=== PATIENT | female | born 1995 | race African-American/Black ===

== ENCOUNTER 2017-06-11 08:58 | Inpatient (IN) | payer MEDICAID ==
[~2017-06-11] VITALS: Ht 162.6 cm; Wt 64.9 kg
[~2017-06-11 08:58] MED LIST: RISP3 PO
[2017-06-11] MEDS ORDERED: HALOPERIDOL 5 MG TABLET PO PRN (12:30)
[2017-06-11] MEDS ORDERED: LORazepam 2 MG TABLET PO PRN (12:30)
[2017-06-11] MEDS ORDERED: ZOLPIDEM TARTRATE 10 MG TABLET PO PRN (12:30)
[2017-06-11 13:00] VITALS: BP 109/75
[2017-06-11] MEDS: RisperiDONE 3 MG TABLET PO SCH (16:03)
[2017-06-11 16:18] VITALS: BP 130/80
[2017-06-12] MEDS ORDERED: PETROLATUM,WHITE 71 GM JELLY TP PRN (08:45)
[2017-06-12] MEDS ORDERED: BENZOCAINE/MENTHOL LOZENGE MM PRN (08:45)
[2017-06-12] MEDS ORDERED: ACETAMINOPHEN 325 MG TABLET PO PRN (08:45)
[2017-06-12] MEDS ORDERED: BACITRACIN 28.4 GM OINTMENT TP PRN (08:45)
[2017-06-12] MEDS ORDERED: ALBUTEROL SULFATE HFA 90 MCG/PUFF 8 GM INHALER IH PRN (08:45)
[2017-06-12] MEDS ORDERED: MAG HYDROX/AL HYDROX/SIMETH ES 30 ML SUSPENSION UDCUP PO PRN (08:45)
[2017-06-12] MEDS ORDERED: CloNIDine HCL 0.1 MG TABLET PO PRN (08:45)
[2017-06-12] MEDS ORDERED: IBUPROFEN 600 MG TABLET PO PRN (08:45)
[2017-06-12] MEDS ORDERED: ONDANSETRON HCL 4 MG TABLET PO PRN (08:45)
[2017-06-12] MEDS ORDERED: LOPERAMIDE HCL 2 MG CAPSULE PO PRN (08:45)
[2017-06-12] MEDS ORDERED: MAGNESIUM HYDROXIDE SUSPENSION 30 ML UDCUP PO PRN (08:45)
[2017-06-12] MEDS ORDERED: HYDROCORTISONE 0.5% 30 GM CREAM TP PRN (09:45)
[2017-06-12] MEDS: RisperiDONE 3 MG TABLET PO SCH ×2 (10:44→16:15)
[2017-06-12 16:06] VITALS: BP 112/80
[2017-06-13 05:57] VITALS: BP 128/72
[2017-06-13] MEDS: RisperiDONE 3 MG TABLET PO SCH ×2 (08:54→16:14)
[2017-06-13 16:08] VITALS: BP 125/74
[2017-06-14 01:55] VITALS: BP 114/72
[2017-06-14] MEDS: RisperiDONE 3 MG TABLET PO SCH ×2 (08:52→16:17)
[2017-06-14] MEDS ORDERED: TUBERCULIN, PURIFIED PROTEIN DERIVATIVE 5 TU/0.1 ML SYG ID ONE (11:15)
[2017-06-15] MEDS: RisperiDONE 3 MG TABLET PO SCH ×2 (09:08→17:00)
[2017-06-15] MEDS: TUBERCULIN, PURIFIED PROTEIN DERIVATIVE 5 TU/0.1 ML SYG ID ONE (14:45)
[2017-06-16] MEDS: RisperiDONE 3 MG TABLET PO SCH ×2 (08:49→16:55)
[2017-06-17] MEDS: RisperiDONE 3 MG TABLET PO SCH ×2 (09:00→16:18)
[2017-06-18 08:24] VITALS: BP 100/56
[2017-06-18] MEDS: RisperiDONE 3 MG TABLET PO SCH ×2 (08:59→16:23)
[2017-06-18] MEDS: TUBERCULIN, PURIFIED PROTEIN DERIVATIVE 5 TU/0.1 ML SYG ID ONE (17:51)
[2017-06-19] MEDS: RisperiDONE 3 MG TABLET PO SCH ×2 (09:00→17:00)
[2017-06-19 09:10] VITALS: BP 114/66
[2017-06-20] MEDS: MEGESTROL ACETATE 400 MG/10 ML SUSPENSION UDCUP PO SCH ×2 (08:56→09:00)
[2017-06-20] MEDS: RisperiDONE 3 MG TABLET PO SCH ×3 (08:56→16:57)
[2017-06-21] MEDS: RisperiDONE 3 MG TABLET PO SCH ×2 (09:00→16:23)
[2017-06-21] MEDS: MEGESTROL ACETATE 400 MG/10 ML SUSPENSION UDCUP PO SCH (09:00)
[2017-06-22] MEDS: MEGESTROL ACETATE 400 MG/10 ML SUSPENSION UDCUP PO SCH ×2 (08:57→09:00)
[2017-06-22] MEDS: RisperiDONE 3 MG TABLET PO SCH ×3 (08:57→17:00)
[2017-06-23] MEDS: MEGESTROL ACETATE 400 MG/10 ML SUSPENSION UDCUP PO SCH ×2 (09:00→09:48)
[2017-06-23] MEDS: RisperiDONE 3 MG TABLET PO SCH ×3 (09:00→17:00)
[2017-06-24] MEDS: RisperiDONE 3 MG TABLET PO SCH ×2 (09:00→17:00)
[2017-06-24] MEDS: MEGESTROL ACETATE 400 MG/10 ML SUSPENSION UDCUP PO SCH (09:00)
[2017-06-25] MEDS: RisperiDONE 3 MG TABLET PO SCH ×2 (09:00→16:53)
[2017-06-25] MEDS: MEGESTROL ACETATE 400 MG/10 ML SUSPENSION UDCUP PO SCH (09:00)
== END 2017-06-25 18:05 | disposition home or self-care (01) | DRG 750 ==
LOC: B3A 12:35 → B2S 06-14 18:38
PROVIDERS: ADMIT Psychiatry & Neurology Psychiatry; ATTEND Psychiatry & Neurology Psychiatry
DX: F20.0 Paranoid schizophrenia (principal); E44.1 Mild protein-calorie malnutrition; G47.00 Insomnia, unspecified; L30.9 Dermatitis, unspecified; Z53.20 Procedure and treatment not carried out because of patient's decision for unspecified reasons; Z91.19 Patient's noncompliance with other medical treatment and regimen; R45.87 Impulsiveness; Z56.0 Unemployment, unspecified; Z68.24 Body mass index [BMI] 24.0-24.9, adult
CPT/HCPCS: 87081

== ENCOUNTER 2017-06-29 17:11 | Inpatient (IN) | payer MEDICAID ==
[~2017-06-29] VITALS: Ht 162.6 cm; Wt 82.6 kg
[2017-06-29 18:14] LABS: BASOPHILS % (AUTO) 0.2 % (0.0-2.0); EOSINOPHILS % (AUTO) 0.2 % (1.0-6.0); HEMATOCRIT 39.7 % (36-46); HEMOGLOBIN 12.9 g/dL (12.0-16.0); LYMPHOCYTES # (AUTO) 1.3 K/uL (1.0-4.8); LYMPHOCYTES % (AUTO) 17.1 % (22.0-44.0); MEAN CORPUSCULAR HEMOGLOBIN 26.4 pg (26.0-34.0); MEAN CORPUSCULAR HGB CONC 32.6 G/dL (31.0-37.0); MEAN CORPUSCULAR VOLUME 81 fL (80-100); MONOCYTES # (AUTO) 0.5 K/uL (0.1-1.0); MONOCYTES % (AUTO) 6.5 % (2.0-9.0); NEUTROPHILS # (AUTO) 5.8 K/uL (1.8-7.7); PLATELET COUNT (AUTO) 226 K/uL (150-450)
[2017-06-29 18:24] LABS: ANION GAP 13 mmol/L (8-16); CALCIUM, TOTAL 9.6 mg/dL (8.8-10.5); CARBON DIOXIDE 26 mmol/L (22-29); CHLORIDE 101 mmol/L (98-107); GLOMERULAR FILTR. RATE CALC > 60 mL/min (>60); GLUCOSE,RANDOM 108 mg/dL (70-110); POTASSIUM 3.8 mmol/L (3.5-5.1); SODIUM SERUM 140 mmol/L (136-145); UREA NITROGEN, BLOOD 8 mg/dL (7-18)
[2017-06-29 18:31] LABS: ALANINE AMINOTRANSFERASE 23 U/L (12-78); ALBUMIN 4.3 g/dL (3.4-5.0); ALKALINE PHOSPHATASE 40 U/L (46-116); ASPARTATE AMINOTRANSFERASE 15 U/L (15-37); BILIRUBIN,TOTAL 1.3 mg/dL (0.1-1.0); TOTAL PROTEIN, SERUM 8.3 g/dL (6.4-8.2)
[2017-06-29] MEDS ORDERED: LORazepam 2 MG TABLET PO PRN (18:45)
[2017-06-29] MEDS ORDERED: HALOPERIDOL 5 MG TABLET PO PRN (18:45)
[2017-06-29] MEDS ORDERED: ZOLPIDEM TARTRATE 10 MG TABLET PO PRN (18:45)
[2017-06-30 00:06] VITALS: BP 128/63
[2017-06-30] MEDS ORDERED: INFLUENZA VIRUS VACCINE QVS 2017-18 (3YR+)/PF 60 MCG/0.5 ML SYRINGE IM ONE (03:00)
[2017-06-30] MEDS ORDERED: BACITRACIN 28.4 GM OINTMENT TP PRN (08:45)
[2017-06-30] MEDS ORDERED: CloNIDine HCL 0.1 MG TABLET PO PRN (08:45)
[2017-06-30] MEDS ORDERED: MAG HYDROX/AL HYDROX/SIMETH ES 30 ML SUSPENSION UDCUP PO PRN (08:45)
[2017-06-30] MEDS ORDERED: MAGNESIUM HYDROXIDE SUSPENSION 30 ML UDCUP PO PRN (08:45)
[2017-06-30] MEDS ORDERED: ONDANSETRON HCL 4 MG TABLET PO PRN (08:45)
[2017-06-30] MEDS ORDERED: PETROLATUM,WHITE 71 GM JELLY TP PRN (08:45)
[2017-06-30] MEDS ORDERED: ALBUTEROL SULFATE HFA 90 MCG/PUFF 8 GM INHALER IH PRN (08:45)
[2017-06-30] MEDS ORDERED: IBUPROFEN 600 MG TABLET PO PRN (08:45)
[2017-06-30] MEDS ORDERED: LOPERAMIDE HCL 2 MG CAPSULE PO PRN (08:45)
[2017-06-30 09:18] VITALS: BP 132/74
[2017-06-30] MEDS: RisperiDONE 3 MG TABLET PO SCH (16:33)
[2017-07-01] MEDS: RisperiDONE 3 MG TABLET PO SCH ×3 (08:46→16:12)
[2017-07-02] MEDS: MEGESTROL ACETATE 400 MG/10 ML SUSPENSION UDCUP PO SCH ×2 (08:49→09:00)
[2017-07-02] MEDS: RisperiDONE 3 MG TABLET PO SCH ×3 (08:49→16:18)
[2017-07-03] MEDS: RisperiDONE 3 MG TABLET PO SCH ×2 (09:00→16:25)
[2017-07-03] MEDS: MEGESTROL ACETATE 400 MG/10 ML SUSPENSION UDCUP PO SCH (09:00)
[2017-07-04] MEDS: RisperiDONE 3 MG TABLET PO SCH ×2 (09:47→16:25)
[2017-07-04] MEDS: MEGESTROL ACETATE 400 MG/10 ML SUSPENSION UDCUP PO SCH (09:47)
[2017-07-04 20:30] VITALS: BP 101/71
[2017-07-05 08:57] VITALS: BP 113/52
[2017-07-05] MEDS: MEGESTROL ACETATE 400 MG/10 ML SUSPENSION UDCUP PO SCH (09:00)
[2017-07-05] MEDS: RisperiDONE 3 MG TABLET PO SCH ×3 (09:00→16:49)
[2017-07-06] MEDS: RisperiDONE 3 MG TABLET PO SCH ×2 (09:53→16:05)
[2017-07-06] MEDS: MEGESTROL ACETATE 400 MG/10 ML SUSPENSION UDCUP PO SCH (09:54)
[2017-07-07] MEDS: MEGESTROL ACETATE 400 MG/10 ML SUSPENSION UDCUP PO SCH (09:00)
[2017-07-07] MEDS: RisperiDONE 3 MG TABLET PO SCH ×2 (10:11→17:00)
[2017-07-08 06:03] VITALS: BP 124/60
[2017-07-08] MEDS: MEGESTROL ACETATE 400 MG/10 ML SUSPENSION UDCUP PO SCH (09:00)
[2017-07-08] MEDS: RisperiDONE 3 MG TABLET PO SCH ×2 (09:00→17:14)
[2017-07-08] MEDS ORDERED: LORazepam 2 MG/ML VIAL IM ONE (12:00)
[2017-07-08] MEDS ORDERED: HALOPERIDOL LACTATE 5 MG/ML VIAL IM ONE (12:00)
[2017-07-08 14:48] VITALS: BP 134/81
[2017-07-09] MEDS: MEGESTROL ACETATE 400 MG/10 ML SUSPENSION UDCUP PO SCH (09:15)
[2017-07-09] MEDS: RisperiDONE 3 MG TABLET PO SCH ×2 (09:16→16:22)
[2017-07-10] MEDS: MEGESTROL ACETATE 400 MG/10 ML SUSPENSION UDCUP PO SCH (08:12)
[2017-07-10] MEDS: RisperiDONE 3 MG TABLET PO SCH ×2 (08:12→16:05)
[2017-07-11 06:02] VITALS: BP 108/63
[2017-07-11] MEDS: RisperiDONE 3 MG TABLET PO SCH ×3 (09:00→16:39)
[2017-07-11] MEDS: MEGESTROL ACETATE 400 MG/10 ML SUSPENSION UDCUP PO SCH (09:00)
[2017-07-12] MEDS: MEGESTROL ACETATE 400 MG/10 ML SUSPENSION UDCUP PO SCH (08:33)
[2017-07-12] MEDS: RisperiDONE 3 MG TABLET PO SCH ×2 (08:34→16:24)
[2017-07-13] MEDS: RisperiDONE 3 MG TABLET PO SCH ×2 (08:28→16:26)
[2017-07-13] MEDS: MEGESTROL ACETATE 400 MG/10 ML SUSPENSION UDCUP PO SCH (08:34)
[2017-07-14 03:58] VITALS: BP 135/72
[2017-07-14] MEDS: MEGESTROL ACETATE 400 MG/10 ML SUSPENSION UDCUP PO SCH (09:00)
[2017-07-14] MEDS: RisperiDONE 3 MG TABLET PO SCH ×2 (09:09→16:15)
[2017-07-15] MEDS: RisperiDONE 3 MG TABLET PO SCH ×2 (08:44→16:43)
[2017-07-15] MEDS: MEGESTROL ACETATE 400 MG/10 ML SUSPENSION UDCUP PO SCH (08:44)
[2017-07-16] MEDS: RisperiDONE 3 MG TABLET PO SCH ×2 (08:27→17:42)
[2017-07-16] MEDS: MEGESTROL ACETATE 400 MG/10 ML SUSPENSION UDCUP PO SCH (08:27)
[2017-07-17] MEDS: MEGESTROL ACETATE 400 MG/10 ML SUSPENSION UDCUP PO SCH (08:28)
[2017-07-17] MEDS: RisperiDONE 3 MG TABLET PO SCH ×2 (08:28→16:20)
[2017-07-18 00:10] VITALS: BP 110/78
[2017-07-18] MEDS: MEGESTROL ACETATE 400 MG/10 ML SUSPENSION UDCUP PO SCH (09:37)
[2017-07-18] MEDS: RisperiDONE 3 MG TABLET PO SCH ×2 (09:37→16:57)
[2017-07-18 16:26] VITALS: BP 122/80
[2017-07-19] MEDS: RisperiDONE 3 MG TABLET PO SCH ×2 (08:42→16:38)
[2017-07-19] MEDS: MEGESTROL ACETATE 400 MG/10 ML SUSPENSION UDCUP PO SCH (08:43)
[2017-07-20 07:54] LABS: CHOL/HDL RATIO 2.4 (3.9-5.7)
[2017-07-20] MEDS: MEGESTROL ACETATE 400 MG/10 ML SUSPENSION UDCUP PO SCH (09:00)
[2017-07-20] MEDS: RisperiDONE 3 MG TABLET PO SCH ×2 (09:49→16:15)
[2017-07-21] MEDS: MEGESTROL ACETATE 400 MG/10 ML SUSPENSION UDCUP PO SCH (09:00)
[2017-07-21] MEDS: RisperiDONE 3 MG TABLET PO SCH ×2 (09:44→17:39)
[2017-07-22] MEDS: RisperiDONE 3 MG TABLET PO SCH ×2 (10:02→17:20)
[2017-07-23 00:48] VITALS: BP 111/60
[2017-07-23] MEDS: RisperiDONE 3 MG TABLET PO SCH ×2 (09:37→17:10)
[2017-07-23 16:28] VITALS: BP 116/67
[2017-07-24] MEDS: RisperiDONE 3 MG TABLET PO SCH ×2 (08:56→16:25)
[2017-07-25] MEDS: RisperiDONE 3 MG TABLET PO SCH ×2 (09:19→16:31)
[2017-07-26] MEDS: RisperiDONE 3 MG TABLET PO SCH ×2 (09:31→16:58)
[2017-07-26 16:20] VITALS: BP 111/63
[2017-07-27 00:20] VITALS: BP 120/72
[2017-07-27] MEDS: RisperiDONE 3 MG TABLET PO SCH ×2 (09:05→16:20)
[2017-07-27 16:11] VITALS: BP 108/72
[2017-07-28 01:09] VITALS: BP 109/63
[2017-07-28] MEDS: RisperiDONE 3 MG TABLET PO SCH ×2 (08:46→16:07)
[2017-07-28 16:32] VITALS: BP 110/68
[2017-07-28] MEDS ORDERED: GuaiFENesin/D-METHORPHAN [SUGAR-FREE] 200-20MG/10 ML SYRUP UDCUP PO PRN (22:15)
[2017-07-29] MEDS: RisperiDONE 3 MG TABLET PO SCH ×2 (08:49→16:16)
[2017-07-29] MEDS: GuaiFENesin SR 600 MG ER TABLET PO PRN (20:36)
[2017-07-30 00:29] VITALS: BP 117/71
[2017-07-30] MEDS: RisperiDONE 3 MG TABLET PO SCH ×2 (08:29→16:23)
[2017-07-31] MEDS: RisperiDONE 3 MG TABLET PO SCH ×2 (09:06→16:07)
[2017-08-01 01:17] VITALS: BP 130/80
[2017-08-01] MEDS: RisperiDONE 3 MG TABLET PO SCH ×2 (08:43→16:34)
[2017-08-02] MEDS: RisperiDONE 3 MG TABLET PO SCH ×2 (08:35→16:12)
[2017-08-02 16:40] VITALS: BP 108/64
[2017-08-03 00:31] VITALS: BP 108/68
[2017-08-03] MEDS: RisperiDONE 3 MG TABLET PO SCH ×2 (08:14→16:38)
[2017-08-03 08:15] VITALS: BP 129/72
[2017-08-04] MEDS: RisperiDONE 3 MG TABLET PO SCH ×2 (08:24→17:22)
[2017-08-05] MEDS: RisperiDONE 3 MG TABLET PO SCH ×2 (09:27→16:23)
[2017-08-06 08:09] VITALS: BP 116/76
[2017-08-06] MEDS: RisperiDONE 3 MG TABLET PO SCH ×2 (08:58→16:47)
[2017-08-07] MEDS: RisperiDONE 3 MG TABLET PO SCH ×2 (09:05→16:55)
[2017-08-08] MEDS: RisperiDONE 3 MG TABLET PO SCH ×2 (09:37→16:32)
[2017-08-09 00:07] VITALS: BP 113/60
[2017-08-09] MEDS: RisperiDONE 3 MG TABLET PO SCH ×2 (10:04→16:19)
[2017-08-10] MEDS: RisperiDONE 3 MG TABLET PO SCH ×2 (08:47→16:07)
[2017-08-11] MEDS: RisperiDONE 3 MG TABLET PO SCH ×2 (08:53→16:40)
[2017-08-12] MEDS: RisperiDONE 3 MG TABLET PO SCH ×2 (10:38→16:38)
[2017-08-13 08:21] VITALS: BP 107/64
[2017-08-13] MEDS: RisperiDONE 3 MG TABLET PO SCH ×2 (08:35→16:10)
[2017-08-14 08:00] VITALS: BP 112/67
[2017-08-14] MEDS: RisperiDONE 3 MG TABLET PO SCH ×2 (09:06→16:19)
[2017-08-15] MEDS: RisperiDONE 3 MG TABLET PO SCH ×2 (09:42→16:38)
[2017-08-15 16:11] VITALS: BP 120/73
[2017-08-16 04:23] VITALS: BP 116/66
[2017-08-16 07:29] LABS: BASOPHILS % (AUTO) 0.6 % (0.0-2.0); EOSINOPHILS % (AUTO) 1.6 % (1.0-6.0); HEMATOCRIT 39.7 % (36-46); HEMOGLOBIN 13.1 g/dL (12.0-16.0); LYMPHOCYTES # (AUTO) 2.8 K/uL (1.0-4.8); LYMPHOCYTES % (AUTO) 48.2 % (22.0-44.0); MEAN CORPUSCULAR HEMOGLOBIN 26.8 pg (26.0-34.0); MEAN CORPUSCULAR HGB CONC 32.9 G/dL (31.0-37.0); MEAN CORPUSCULAR VOLUME 81 fL (80-100); MONOCYTES # (AUTO) 0.4 K/uL (0.1-1.0); MONOCYTES % (AUTO) 6.4 % (2.0-9.0); NEUTROPHILS # (AUTO) 2.5 K/uL (1.8-7.7); NEUTROPHILS % (AUTO) 43.2 % (40.0-70.0); PLATELET COUNT (AUTO) 217 K/uL (150-450); RED BLOOD CELL COUNT(AUTO) 4.87 MIL/uL (4.00-5.20); RED CELL DISTRIBUTION WIDTH 15.2 % (11.5-14.5)
[2017-08-16 07:56] LABS: ANION GAP 9 mmol/L (8-16); CALCIUM, TOTAL 8.9 mg/dL (8.8-10.5); CARBON DIOXIDE 27 mmol/L (22-29); CHLORIDE 105 mmol/L (98-107); CREATININE 0.72 mg/dL (0.60-1.30); GLOMERULAR FILTR. RATE CALC > 60 mL/min (>60); GLUCOSE,RANDOM 93 mg/dL (70-110); PHOSPHORUS 4.5 mg/dL (2.5-4.9); POTASSIUM 4.4 mmol/L (3.5-5.1); SODIUM SERUM 141 mmol/L (136-145); UREA NITROGEN, BLOOD 14 mg/dL (7-18)
[2017-08-16] MEDS: RisperiDONE 3 MG TABLET PO SCH ×2 (08:37→16:20)
[2017-08-17 05:35] VITALS: BP 105/52
[2017-08-17] MEDS: RisperiDONE 3 MG TABLET PO SCH ×2 (08:15→16:18)
[2017-08-18 06:40] VITALS: BP 110/66
[2017-08-18] MEDS: RisperiDONE 3 MG TABLET PO SCH ×2 (08:10→16:45)
[2017-08-18 08:13] VITALS: BP 129/84
[2017-08-19] MEDS: RisperiDONE 3 MG TABLET PO SCH ×2 (08:49→16:09)
[2017-08-19 16:13] VITALS: BP 113/67
[2017-08-20 01:14] VITALS: BP 123/68
[2017-08-20] MEDS: RisperiDONE 3 MG TABLET PO SCH ×2 (08:19→17:43)
[2017-08-20 17:27] VITALS: BP 124/66
[2017-08-21] MEDS: RisperiDONE 3 MG TABLET PO SCH ×2 (08:45→16:15)
[2017-08-21 16:17] VITALS: BP 123/69
[2017-08-22 03:59] VITALS: BP 119/68
[2017-08-22] MEDS: RisperiDONE 3 MG TABLET PO SCH ×2 (09:19→16:48)
[2017-08-22 16:09] VITALS: BP 119/66
[2017-08-23] MEDS: RisperiDONE 3 MG TABLET PO SCH ×2 (08:37→16:16)
[2017-08-23 16:12] VITALS: BP 121/70
[2017-08-24] MEDS: RisperiDONE 3 MG TABLET PO SCH ×2 (08:56→16:12)
[2017-08-25] MEDS: RisperiDONE 3 MG TABLET PO SCH ×2 (08:35→16:13)
[2017-08-26] MEDS: RisperiDONE 3 MG TABLET PO SCH ×2 (08:27→16:12)
[2017-08-27] MEDS: RisperiDONE 3 MG TABLET PO SCH ×2 (08:41→16:25)
[2017-08-27 16:15] VITALS: BP 112/85
[2017-08-28 03:46] VITALS: BP 119/78
[2017-08-28 08:16] VITALS: BP 121/72
[2017-08-28] MEDS: RisperiDONE 3 MG TABLET PO SCH ×2 (08:36→16:03)
[2017-08-29 06:59] VITALS: BP 115/66
[2017-08-29 08:05] VITALS: BP 118/70
[2017-08-29] MEDS: RisperiDONE 3 MG TABLET PO SCH ×2 (08:17→16:24)
[2017-08-29 16:24] VITALS: BP 109/79
[2017-08-30 00:38] VITALS: BP 121/76
[2017-08-30] MEDS: RisperiDONE 3 MG TABLET PO SCH ×2 (08:50→16:13)
[2017-08-31 00:45] VITALS: BP 114/70
[2017-08-31] MEDS: RisperiDONE 3 MG TABLET PO SCH ×2 (08:41→16:09)
[2017-08-31 16:27] VITALS: BP 126/74
[2017-09-01 06:57] VITALS: BP 123/66
[2017-09-01 07:15] VITALS: BP 125/83
[2017-09-01] MEDS: RisperiDONE 3 MG TABLET PO SCH ×2 (12:23→17:03)
[2017-09-02] MEDS: RisperiDONE 3 MG TABLET PO SCH ×4 (09:00→16:35)
[2017-09-03 00:55] VITALS: BP 127/70
[2017-09-03] MEDS: RisperiDONE 3 MG TABLET PO SCH ×2 (08:41→16:35)
[2017-09-03 16:00] VITALS: BP 116/72
[2017-09-03 16:10] VITALS: BP 116/72
[2017-09-04] MEDS: RisperiDONE 3 MG TABLET PO SCH ×2 (09:05→16:46)
[2017-09-04 09:13] VITALS: BP 120/67
[2017-09-05] MEDS: RisperiDONE 3 MG TABLET PO SCH ×2 (09:00→16:16)
[2017-09-05 09:16] VITALS: BP 97/45
[2017-09-05 10:30] VITALS: BP 103/66
[2017-09-05 14:24] VITALS: BP 103/66
[2017-09-05 16:48] VITALS: BP 105/65
[2017-09-06 06:23] VITALS: BP 120/78
[2017-09-06] MEDS: RisperiDONE 3 MG TABLET PO SCH ×2 (08:43→16:19)
[2017-09-06 08:57] VITALS: BP 123/67
[2017-09-07] MEDS: RisperiDONE 3 MG TABLET PO SCH ×2 (08:29→16:03)
[2017-09-08 00:58] VITALS: BP 125/71
[2017-09-08] MEDS: RisperiDONE 3 MG TABLET PO SCH ×2 (08:40→16:50)
[2017-09-08 16:00] VITALS: BP 110/72
[2017-09-09] MEDS: RisperiDONE 3 MG TABLET PO SCH ×2 (08:41→16:26)
[2017-09-10 08:03] LABS: HEMATOCRIT 43.4 % (36-46); HEMOGLOBIN 13.8 g/dL (12.0-16.0); MEAN CORPUSCULAR HGB CONC 31.8 G/dL (31.0-37.0); MEAN CORPUSCULAR VOLUME 82 fL (80-100); PLATELET COUNT (AUTO) 214 K/uL (150-450); RED BLOOD CELL COUNT(AUTO) 5.31 MIL/uL (4.00-5.20); RED CELL DISTRIBUTION WIDTH 14.8 % (11.5-14.5)
[2017-09-10 08:31] LABS: ANION GAP 6 mmol/L (8-16); CALCIUM, TOTAL 8.8 mg/dL (8.8-10.5); CARBON DIOXIDE 31 mmol/L (22-29); CHLORIDE 103 mmol/L (98-107); CHOL/HDL RATIO 2.8 (3.9-5.7); CHOLESTEROL 166 mg/dL (131-200); CREATININE 0.73 mg/dL (0.60-1.30); GLOMERULAR FILTR. RATE CALC > 60 mL/min (>60); GLUCOSE,RANDOM 99 mg/dL (70-110); HDL CHOLESTEROL 60 mg/dL (40-60); LDL CHOL (CALC.) 85 mg/dL (0-130); PHOSPHORUS 3.6 mg/dL (2.5-4.9); SODIUM SERUM 140 mmol/L (136-145); TRIGLYCERIDES 105 mg/dL (15-150); UREA NITROGEN, BLOOD 11 mg/dL (7-18)
[2017-09-10] MEDS: RisperiDONE 3 MG TABLET PO SCH ×2 (09:13→16:10)
[2017-09-10 09:58] LABS: EOSINOPHILS % (MANUAL) 2 % (1-6); LYMPHOCYTES % (MANUAL) 68 % (22-44); MONOCYTES % (MANUAL) 3 % (2-9); SEGMENTED NEUTROPHILS % 27 % (40-70)
[2017-09-11 08:49] VITALS: BP 116/64
[2017-09-11] MEDS: RisperiDONE 4 MG TABLET PO SCH ×2 (08:53→16:15)
[2017-09-11 16:00] VITALS: BP 108/62
[2017-09-12 01:52] VITALS: BP 122/71
[2017-09-12 08:42] VITALS: BP 100/79
[2017-09-12] MEDS: RisperiDONE 4 MG TABLET PO SCH ×2 (09:24→16:19)
[2017-09-12 16:00] VITALS: BP 112/68
[2017-09-13 02:58] VITALS: BP 120/89
[2017-09-13] MEDS: RisperiDONE 4 MG TABLET PO SCH ×2 (08:59→16:24)
[2017-09-13 09:00] VITALS: BP 122/76
[2017-09-13 17:28] VITALS: BP 120/63
[2017-09-14 06:32] VITALS: BP 121/65
[2017-09-14] MEDS: RisperiDONE 4 MG TABLET PO SCH ×2 (08:41→16:10)
[2017-09-14 10:04] VITALS: BP 113/61
[2017-09-14 16:19] VITALS: BP 122/66
[2017-09-15 00:30] VITALS: BP 115/67
[2017-09-15 08:54] VITALS: BP 119/68
[2017-09-15] MEDS: CHOLECALCIFEROL (VIT D3) 1,000 UNITS TABLET PO SCH (09:32)
[2017-09-15] MEDS: RisperiDONE 4 MG TABLET PO SCH ×2 (09:32→16:18)
[2017-09-15 16:29] VITALS: BP 114/61
[2017-09-16 00:38] VITALS: BP 126/87
[2017-09-16] MEDS: RisperiDONE 4 MG TABLET PO SCH ×2 (08:38→16:17)
[2017-09-16] MEDS: CHOLECALCIFEROL (VIT D3) 1,000 UNITS TABLET PO SCH (08:41)
[2017-09-16 08:50] VITALS: BP 116/71
[2017-09-16 16:16] VITALS: BP 123/71
[2017-09-17 00:53] VITALS: BP 124/72
[2017-09-17] MEDS: CHOLECALCIFEROL (VIT D3) 1,000 UNITS TABLET PO SCH (08:41)
[2017-09-17] MEDS: RisperiDONE 4 MG TABLET PO SCH ×2 (08:41→16:01)
[2017-09-17 16:38] VITALS: BP 120/73
[2017-09-18 00:48] VITALS: BP 124/74
[2017-09-18] MEDS: RisperiDONE 4 MG TABLET PO SCH ×2 (08:22→16:06)
[2017-09-18 08:46] VITALS: BP 128/73
[2017-09-18] MEDS: CHOLECALCIFEROL (VIT D3) 1,000 UNITS TABLET PO SCH (09:00)
[2017-09-18 16:25] VITALS: BP 123/66
[2017-09-19] MEDS: RisperiDONE 4 MG TABLET PO SCH ×2 (08:38→16:01)
[2017-09-19] MEDS: CHOLECALCIFEROL (VIT D3) 1,000 UNITS TABLET PO SCH (08:42)
[2017-09-19 16:13] VITALS: BP 116/71
[2017-09-20 05:52] VITALS: BP 110/60
[2017-09-20 08:29] VITALS: BP 122/74
[2017-09-20] MEDS: RisperiDONE 4 MG TABLET PO SCH ×2 (08:57→16:20)
[2017-09-20] MEDS: CHOLECALCIFEROL (VIT D3) 1,000 UNITS TABLET PO SCH (09:00)
[2017-09-20 17:50] VITALS: BP 116/69
[2017-09-21 00:19] VITALS: BP 127/75
[2017-09-21] MEDS: CHOLECALCIFEROL (VIT D3) 1,000 UNITS TABLET PO SCH (09:00)
[2017-09-21] MEDS: RisperiDONE 4 MG TABLET PO SCH ×2 (09:03→16:07)
[2017-09-21 10:00] VITALS: BP 122/70
[2017-09-21 16:22] VITALS: BP 118/68
[2017-09-22 05:52] VITALS: BP 121/62
[2017-09-22] MEDS: CHOLECALCIFEROL (VIT D3) 1,000 UNITS TABLET PO SCH (09:00)
[2017-09-22] MEDS: RisperiDONE 4 MG TABLET PO SCH ×2 (09:44→17:01)
[2017-09-22 16:41] VITALS: BP 109/68
[2017-09-23] MEDS: RisperiDONE 4 MG TABLET PO SCH ×2 (08:40→16:30)
[2017-09-23] MEDS: CHOLECALCIFEROL (VIT D3) 1,000 UNITS TABLET PO SCH ×2 (08:40→09:00)
[2017-09-23 08:43] VITALS: BP 117/60
[2017-09-23 16:00] VITALS: BP 109/61
[2017-09-24] MEDS: CHOLECALCIFEROL (VIT D3) 1,000 UNITS TABLET PO SCH (09:00)
[2017-09-24] MEDS: RisperiDONE 4 MG TABLET PO SCH ×2 (09:11→16:10)
[2017-09-24 15:41] VITALS: BP 115/61
[2017-09-24 16:11] VITALS: BP 118/69
[2017-09-25 02:20] VITALS: BP 109/71
[2017-09-25 08:49] VITALS: BP 102/54
[2017-09-25] MEDS: CHOLECALCIFEROL (VIT D3) 1,000 UNITS TABLET PO SCH (09:00)
[2017-09-25] MEDS: RisperiDONE 4 MG TABLET PO SCH ×2 (09:11→16:04)
[2017-09-25 16:39] VITALS: BP 115/68
[2017-09-26 01:29] VITALS: BP 118/71
[2017-09-26] MEDS: CHOLECALCIFEROL (VIT D3) 1,000 UNITS TABLET PO SCH (09:00)
[2017-09-26] MEDS: RisperiDONE 4 MG TABLET PO SCH ×2 (09:22→16:13)
[2017-09-27 00:38] VITALS: BP 123/79
[2017-09-27 08:11] VITALS: BP 121/62
[2017-09-27] MEDS: CHOLECALCIFEROL (VIT D3) 1,000 UNITS TABLET PO SCH (09:00)
[2017-09-27] MEDS: RisperiDONE 4 MG TABLET PO SCH ×2 (09:34→16:10)
[2017-09-27 16:34] VITALS: BP 115/74
[2017-09-28 01:26] VITALS: BP 120/81
[2017-09-28] MEDS: CHOLECALCIFEROL (VIT D3) 1,000 UNITS TABLET PO SCH (09:00)
[2017-09-28] MEDS: RisperiDONE 4 MG TABLET PO SCH ×2 (09:01→16:54)
[2017-09-28 16:44] VITALS: BP 111/61
[2017-09-29 01:12] VITALS: BP 134/90
[2017-09-29] MEDS: RisperiDONE 4 MG TABLET PO SCH ×2 (08:35→16:34)
[2017-09-29] MEDS: CHOLECALCIFEROL (VIT D3) 1,000 UNITS TABLET PO SCH (09:00)
[2017-09-29 16:19] VITALS: BP 119/71
[2017-09-30 02:44] VITALS: BP 116/75
[2017-09-30] MEDS: CHOLECALCIFEROL (VIT D3) 1,000 UNITS TABLET PO SCH ×2 (09:00→09:21)
[2017-09-30] MEDS: RisperiDONE 4 MG TABLET PO SCH ×2 (09:21→16:21)
[2017-09-30 16:00] VITALS: BP 126/70
[2017-10-01 00:47] VITALS: BP 110/65
[2017-10-01] MEDS: RisperiDONE 4 MG TABLET PO SCH ×2 (08:45→16:09)
[2017-10-01] MEDS: CHOLECALCIFEROL (VIT D3) 1,000 UNITS TABLET PO SCH (09:00)
[2017-10-01 16:00] VITALS: BP 105/70
[2017-10-02] VITALS: BP 107/64
[2017-10-02] MEDS: RisperiDONE 4 MG TABLET PO SCH ×2 (08:27→16:23)
[2017-10-02 08:53] VITALS: BP 109/67
[2017-10-02] MEDS: CHOLECALCIFEROL (VIT D3) 1,000 UNITS TABLET PO SCH (09:00)
[2017-10-02 16:45] VITALS: BP 111/61
[2017-10-03 08:00] VITALS: BP 111/70
[2017-10-03] MEDS: RisperiDONE 4 MG TABLET PO SCH ×2 (08:25→16:18)
[2017-10-03] MEDS: CHOLECALCIFEROL (VIT D3) 1,000 UNITS TABLET PO SCH (09:00)
[2017-10-03 16:00] VITALS: BP 109/65
[2017-10-04 04:44] VITALS: BP 109/68
[2017-10-04 08:49] VITALS: BP 123/79
[2017-10-04] MEDS: RisperiDONE 4 MG TABLET PO SCH ×2 (09:40→16:19)
[2017-10-04] MEDS: CHOLECALCIFEROL (VIT D3) 1,000 UNITS TABLET PO SCH (09:41)
[2017-10-04 16:24] VITALS: BP 116/60
[2017-10-05 00:25] VITALS: BP 102/68
[2017-10-05] MEDS: CHOLECALCIFEROL (VIT D3) 1,000 UNITS TABLET PO SCH ×2 (08:36→09:00)
[2017-10-05] MEDS: RisperiDONE 4 MG TABLET PO SCH ×2 (08:36→16:04)
[2017-10-05 16:13] VITALS: BP 120/82
[2017-10-06 00:20] VITALS: BP 123/74
[2017-10-06] MEDS: RisperiDONE 4 MG TABLET PO SCH ×2 (08:48→16:18)
[2017-10-06] MEDS: CHOLECALCIFEROL (VIT D3) 1,000 UNITS TABLET PO SCH (08:52)
[2017-10-06 16:54] VITALS: BP 108/69
[2017-10-07 01:00] VITALS: BP 129/80
[2017-10-07] MEDS: RisperiDONE 4 MG TABLET PO SCH ×2 (08:42→16:16)
[2017-10-07] MEDS: CHOLECALCIFEROL (VIT D3) 1,000 UNITS TABLET PO SCH (08:42)
[2017-10-08 06:01] VITALS: BP 126/76
[2017-10-08] MEDS: CHOLECALCIFEROL (VIT D3) 1,000 UNITS TABLET PO SCH (08:44)
[2017-10-08] MEDS: RisperiDONE 4 MG TABLET PO SCH ×2 (08:44→16:18)
[2017-10-08 16:11] VITALS: BP 120/65
[2017-10-09 05:11] VITALS: BP 120/81
[2017-10-09] MEDS: RisperiDONE 4 MG TABLET PO SCH ×2 (08:25→16:41)
[2017-10-09] MEDS: CHOLECALCIFEROL (VIT D3) 1,000 UNITS TABLET PO SCH (09:00)
[2017-10-09 14:20] VITALS: BP 120/69
[2017-10-09 16:16] VITALS: BP 114/66
[2017-10-10 06:35] VITALS: BP 125/73
[2017-10-10] MEDS: CHOLECALCIFEROL (VIT D3) 1,000 UNITS TABLET PO SCH (09:00)
[2017-10-10] MEDS: RisperiDONE 4 MG TABLET PO SCH ×2 (09:25→16:34)
[2017-10-10 16:09] VITALS: BP 114/63
[2017-10-11 01:50] VITALS: BP 126/75
[2017-10-11] MEDS: CHOLECALCIFEROL (VIT D3) 1,000 UNITS TABLET PO SCH (09:00)
[2017-10-11] MEDS: RisperiDONE 4 MG TABLET PO SCH ×2 (09:31→16:20)
[2017-10-11 16:27] VITALS: BP 112/64
[2017-10-12 00:58] VITALS: BP 125/68
[2017-10-12 08:11] VITALS: BP 118/70
[2017-10-12] MEDS: CHOLECALCIFEROL (VIT D3) 1,000 UNITS TABLET PO SCH (09:00)
[2017-10-12] MEDS: RisperiDONE 4 MG TABLET PO SCH ×2 (09:00→09:40)
[2017-10-12] MEDS: RisperiDONE CONC 4 MG/4 ML SOLUTION ORAL.SYG PO SCH (16:05)
[2017-10-13 00:32] VITALS: BP 120/81
[2017-10-13 08:00] LABS: HEMATOCRIT 43.2 % (36-46); HEMOGLOBIN 13.8 g/dL (12.0-16.0); MEAN CORPUSCULAR HGB CONC 31.9 G/dL (31.0-37.0); MEAN CORPUSCULAR VOLUME 81 fL (80-100); PLATELET COUNT (AUTO) 214 K/uL (150-450); RED CELL DISTRIBUTION WIDTH 14.6 % (11.5-14.5)
[2017-10-13 08:17] LABS: ANION GAP 8 mmol/L (8-16); CALCIUM, TOTAL 8.9 mg/dL (8.8-10.5); CARBON DIOXIDE 28 mmol/L (22-29); CHLORIDE 99 mmol/L (98-107); CREATININE 0.69 mg/dL (0.60-1.30); GLOMERULAR FILTR. RATE CALC > 60 mL/min (>60); GLUCOSE,RANDOM 88 mg/dL (70-110); POTASSIUM 3.6 mmol/L (3.5-5.1); SODIUM SERUM 135 mmol/L (136-145); UREA NITROGEN, BLOOD 10 mg/dL (7-18)
[2017-10-13 08:31] LABS: CHOL/HDL RATIO 2.7 (3.9-5.7); CHOLESTEROL 175 mg/dL (131-200); HDL CHOLESTEROL 65 mg/dL (40-60); LDL CHOL (CALC.) 102 mg/dL (0-130); PHOSPHORUS 4.2 mg/dL (2.5-4.9); THYROID STIMULATING HORMONE 1.66 uIU/mL (0.36-3.74); TRIGLYCERIDES 42 mg/dL (15-150)
[2017-10-13] MEDS: RisperiDONE CONC 4 MG/4 ML SOLUTION ORAL.SYG PO SCH ×2 (08:52→16:36)
[2017-10-13] MEDS: CHOLECALCIFEROL (VIT D3) 1,000 UNITS TABLET PO SCH (08:57)
[2017-10-13 12:32] LABS: BASOPHILS % (MANUAL) 1 % (0-2); EOSINOPHILS % (MANUAL) 2 % (1-6); LYMPHOCYTES % (MANUAL) 55 % (22-44); MONOCYTES % (MANUAL) 3 % (2-9); SEGMENTED NEUTROPHILS % 39 % (40-70)
[2017-10-13 16:41] VITALS: BP 118/79
[2017-10-13] MEDS: SODIUM CHLORIDE 1 GM TABLET PO SCH ×2 (17:30→21:55)
[2017-10-13] MEDS ORDERED: SODIUM CHLORIDE 1 GM TABLET ONE (21:49)
[2017-10-14 00:35] VITALS: BP 130/81
[2017-10-14 08:23] VITALS: BP 113/64
[2017-10-14] MEDS: CHOLECALCIFEROL (VIT D3) 1,000 UNITS TABLET PO SCH (09:00)
[2017-10-14] MEDS: SODIUM CHLORIDE 1 GM TABLET PO SCH (09:00)
[2017-10-14] MEDS: RisperiDONE CONC 4 MG/4 ML SOLUTION ORAL.SYG PO SCH ×2 (09:29→17:09)
[2017-10-14 16:20] VITALS: BP 133/75
[2017-10-15 00:35] VITALS: BP 123/76
[2017-10-15] MEDS: CHOLECALCIFEROL (VIT D3) 1,000 UNITS TABLET PO SCH (09:00)
[2017-10-15] MEDS: RisperiDONE CONC 4 MG/4 ML SOLUTION ORAL.SYG PO SCH ×2 (09:42→16:38)
[2017-10-15 16:11] VITALS: BP 118/72
[2017-10-16] MEDS: CHOLECALCIFEROL (VIT D3) 1,000 UNITS TABLET PO SCH (09:00)
[2017-10-16] MEDS: RisperiDONE CONC 4 MG/4 ML SOLUTION ORAL.SYG PO SCH ×2 (09:13→16:01)
[2017-10-16 16:00] VITALS: BP 131/90
[2017-10-17 00:17] VITALS: BP 125/97
[2017-10-17] MEDS: CHOLECALCIFEROL (VIT D3) 1,000 UNITS TABLET PO SCH (09:00)
[2017-10-17 09:27] VITALS: BP 124/88
[2017-10-17] MEDS: RisperiDONE CONC 4 MG/4 ML SOLUTION ORAL.SYG PO SCH ×2 (09:52→16:18)
[2017-10-17 16:00] VITALS: BP 120/84
[2017-10-18 06:43] VITALS: BP 110/82
[2017-10-18 08:09] LABS: MAGNESIUM 1.7 mg/dL (1.80-2.40)
[2017-10-18] MEDS: RisperiDONE CONC 4 MG/4 ML SOLUTION ORAL.SYG PO SCH ×2 (08:56→17:00)
[2017-10-18] MEDS: CHOLECALCIFEROL (VIT D3) 1,000 UNITS TABLET PO SCH (09:00)
[2017-10-18 16:00] VITALS: BP 114/86
[2017-10-19 06:44] VITALS: BP 119/86
[2017-10-19] MEDS: RisperiDONE CONC 4 MG/4 ML SOLUTION ORAL.SYG PO SCH ×2 (09:15→16:35)
[2017-10-19] MEDS: CHOLECALCIFEROL (VIT D3) 1,000 UNITS TABLET PO SCH (09:16)
[2017-10-20 01:49] VITALS: BP 121/72
[2017-10-20] MEDS: CHOLECALCIFEROL (VIT D3) 1,000 UNITS TABLET PO SCH (09:00)
[2017-10-20] MEDS: RisperiDONE CONC 4 MG/4 ML SOLUTION ORAL.SYG PO SCH ×2 (09:32→16:30)
[2017-10-20 16:45] VITALS: BP_SYST 112; BP_SYST 115; BP_DIAS 65; BP_DIAS 67
[2017-10-21 00:27] VITALS: BP 100/62
[2017-10-21] MEDS: CHOLECALCIFEROL (VIT D3) 1,000 UNITS TABLET PO SCH (08:44)
[2017-10-21] MEDS: RisperiDONE CONC 4 MG/4 ML SOLUTION ORAL.SYG PO SCH ×2 (08:44→21:21)
[2017-10-21 17:27] VITALS: BP 118/78
[2017-10-22 00:39] VITALS: BP 108/71
[2017-10-22] MEDS: CHOLECALCIFEROL (VIT D3) 1,000 UNITS TABLET PO SCH (09:00)
[2017-10-22] MEDS: RisperiDONE CONC 4 MG/4 ML SOLUTION ORAL.SYG PO SCH ×2 (09:16→16:37)
[2017-10-22 19:14] VITALS: BP 128/75
[2017-10-23 00:51] VITALS: BP 120/81
[2017-10-23] MEDS: RisperiDONE CONC 4 MG/4 ML SOLUTION ORAL.SYG PO SCH ×2 (08:44→16:45)
[2017-10-23] MEDS: CHOLECALCIFEROL (VIT D3) 1,000 UNITS TABLET PO SCH ×2 (08:44→16:45)
[2017-10-23 10:40] VITALS: BP 115/65
[2017-10-23 16:22] VITALS: BP 121/72
[2017-10-24 06:30] VITALS: BP 108/70
[2017-10-24 08:56] VITALS: BP 116/78
[2017-10-24] MEDS: CHOLECALCIFEROL (VIT D3) 1,000 UNITS TABLET PO SCH (09:00)
[2017-10-24] MEDS: RisperiDONE CONC 4 MG/4 ML SOLUTION ORAL.SYG PO SCH ×2 (09:48→16:32)
[2017-10-24 16:11] VITALS: BP 112/61
[2017-10-25 05:07] VITALS: BP 120/81
[2017-10-25] MEDS: RisperiDONE CONC 4 MG/4 ML SOLUTION ORAL.SYG PO SCH ×2 (08:45→16:37)
[2017-10-25] MEDS: CHOLECALCIFEROL (VIT D3) 1,000 UNITS TABLET PO SCH (08:48)
[2017-10-26 01:16] VITALS: BP 129/81
[2017-10-26 09:55] VITALS: BP 125/74
[2017-10-26] MEDS: RisperiDONE CONC 4 MG/4 ML SOLUTION ORAL.SYG PO SCH ×2 (10:02→17:01)
[2017-10-26] MEDS: CHOLECALCIFEROL (VIT D3) 1,000 UNITS TABLET PO SCH (10:41)
[2017-10-26 16:25] VITALS: BP 110/68
[2017-10-27 01:31] VITALS: BP 137/80
[2017-10-27] MEDS: RisperiDONE CONC 4 MG/4 ML SOLUTION ORAL.SYG PO SCH ×2 (08:44→16:28)
[2017-10-27] MEDS: CHOLECALCIFEROL (VIT D3) 1,000 UNITS TABLET PO SCH (08:44)
[2017-10-27 08:46] VITALS: BP 137/75
[2017-10-27 16:00] VITALS: BP 125/77
[2017-10-28 00:55] VITALS: BP 108/54
[2017-10-28 08:42] VITALS: BP 116/65
[2017-10-28] MEDS: RisperiDONE CONC 4 MG/4 ML SOLUTION ORAL.SYG PO SCH ×2 (08:45→16:17)
[2017-10-28] MEDS: CHOLECALCIFEROL (VIT D3) 1,000 UNITS TABLET PO SCH (09:00)
[2017-10-28 16:00] VITALS: BP 110/69
[2017-10-29] MEDS: CHOLECALCIFEROL (VIT D3) 1,000 UNITS TABLET PO SCH (09:49)
[2017-10-29] MEDS: RisperiDONE CONC 4 MG/4 ML SOLUTION ORAL.SYG PO SCH ×2 (09:49→17:23)
[2017-10-29 16:24] VITALS: BP 128/70
[2017-10-30 05:39] VITALS: BP 131/86
[2017-10-30 07:20] VITALS: BP 104/78
[2017-10-30 08:51] VITALS: BP 109/88
[2017-10-30] MEDS: CHOLECALCIFEROL (VIT D3) 1,000 UNITS TABLET PO SCH (09:00)
[2017-10-30] MEDS: RisperiDONE CONC 4 MG/4 ML SOLUTION ORAL.SYG PO SCH ×2 (09:03→16:16)
[2017-10-30 16:12] VITALS: BP 118/66
[2017-10-31 01:20] VITALS: BP 111/67
[2017-10-31 08:22] VITALS: BP 114/68
[2017-10-31] MEDS: CHOLECALCIFEROL (VIT D3) 1,000 UNITS TABLET PO SCH (08:46)
[2017-10-31] MEDS: RisperiDONE CONC 4 MG/4 ML SOLUTION ORAL.SYG PO SCH ×2 (08:46→16:57)
[2017-11-01 04:43] VITALS: BP 114/63
[2017-11-01] MEDS: CHOLECALCIFEROL (VIT D3) 1,000 UNITS TABLET PO SCH (09:00)
[2017-11-01] MEDS: RisperiDONE CONC 4 MG/4 ML SOLUTION ORAL.SYG PO SCH ×2 (09:01→17:04)
[2017-11-01 16:00] VITALS: BP 118/76
[2017-11-02 00:34] VITALS: BP 110/65
[2017-11-02] MEDS: RisperiDONE CONC 4 MG/4 ML SOLUTION ORAL.SYG PO SCH ×2 (08:44→16:14)
[2017-11-02] MEDS: CHOLECALCIFEROL (VIT D3) 1,000 UNITS TABLET PO SCH (09:00)
[2017-11-02 09:35] VITALS: BP 104/58
[2017-11-03 00:43] VITALS: BP 120/81
[2017-11-03 08:13] VITALS: BP 119/66
[2017-11-03] MEDS: CHOLECALCIFEROL (VIT D3) 1,000 UNITS TABLET PO SCH (09:00)
[2017-11-03] MEDS: RisperiDONE CONC 4 MG/4 ML SOLUTION ORAL.SYG PO SCH ×2 (09:11→16:51)
[2017-11-03 16:33] VITALS: BP 118/56
[2017-11-04 00:10] VITALS: BP 122/80
[2017-11-04 08:11] VITALS: BP 113/56
[2017-11-04] MEDS: CHOLECALCIFEROL (VIT D3) 1,000 UNITS TABLET PO SCH (08:34)
[2017-11-04] MEDS: RisperiDONE CONC 4 MG/4 ML SOLUTION ORAL.SYG PO SCH ×2 (08:34→16:44)
[2017-11-04 16:00] VITALS: BP 128/70
[2017-11-05 04:22] VITALS: BP 125/76
[2017-11-05] MEDS: RisperiDONE CONC 4 MG/4 ML SOLUTION ORAL.SYG PO SCH ×2 (08:30→16:05)
[2017-11-05] MEDS: CHOLECALCIFEROL (VIT D3) 1,000 UNITS TABLET PO SCH (09:00)
[2017-11-06 05:14] VITALS: BP 103/64
[2017-11-06 08:45] VITALS: BP 103/60
[2017-11-06] MEDS: RisperiDONE CONC 4 MG/4 ML SOLUTION ORAL.SYG PO SCH ×2 (08:47→16:03)
[2017-11-06] MEDS: CHOLECALCIFEROL (VIT D3) 1,000 UNITS TABLET PO SCH (08:48)
[2017-11-06 16:04] VITALS: BP 115/65
[2017-11-07 08:25] VITALS: BP 123/64
[2017-11-07] MEDS: RisperiDONE CONC 4 MG/4 ML SOLUTION ORAL.SYG PO SCH ×2 (08:33→16:24)
[2017-11-07] MEDS: CHOLECALCIFEROL (VIT D3) 1,000 UNITS TABLET PO SCH (08:34)
[2017-11-08 01:18] VITALS: BP 123/79
[2017-11-08] MEDS: RisperiDONE CONC 4 MG/4 ML SOLUTION ORAL.SYG PO SCH ×2 (08:26→16:07)
[2017-11-08] MEDS: CHOLECALCIFEROL (VIT D3) 1,000 UNITS TABLET PO SCH (09:00)
[2017-11-08] MEDS: BENZOCAINE/MENTHOL LOZENGE MM PRN (16:07)
[2017-11-08 16:12] VITALS: BP 117/70
[2017-11-09] MEDS: ACETAMINOPHEN 325 MG TABLET PO PRN (00:13)
[2017-11-09 04:34] VITALS: BP 118/65
[2017-11-09] MEDS: RisperiDONE CONC 4 MG/4 ML SOLUTION ORAL.SYG PO SCH ×2 (08:22→16:30)
[2017-11-09] MEDS: CHOLECALCIFEROL (VIT D3) 1,000 UNITS TABLET PO SCH (08:22)
[2017-11-09 08:27] VITALS: BP 124/78
[2017-11-09 16:02] VITALS: BP 115/68
[2017-11-09 17:30] VITALS: BP 115/68
[2017-11-09] MEDS ORDERED: AZITHROMYCIN 250 MG TABLET PO ONE (17:45)
[2017-11-09] MEDS: BENZOCAINE/MENTHOL LOZENGE MM PRN (17:59)
[2017-11-09 22:12] VITALS: BP 125/76
[2017-11-10] VITALS (8 sets, daily range): BP systolic 107–128; BP diastolic 58–72
[2017-11-10] MEDS: ACETAMINOPHEN 325 MG TABLET PO PRN (05:27)
[2017-11-10 07:37] LABS: HEMATOCRIT 40.2 % (36-46); HEMOGLOBIN 13.3 g/dL (12.0-16.0); MEAN CORPUSCULAR VOLUME 79 fL (80-100); PLATELET COUNT (AUTO) 179 K/uL (150-450); RED BLOOD CELL COUNT(AUTO) 5.11 MIL/uL (4.00-5.20); RED CELL DISTRIBUTION WIDTH 14.5 % (11.5-14.5)
[2017-11-10 07:55] LABS: ALANINE AMINOTRANSFERASE 31 U/L (12-78); ALBUMIN 3.4 g/dL (3.4-5.0); ALKALINE PHOSPHATASE 44 U/L (46-116); ANION GAP 11 mmol/L (8-16); ASPARTATE AMINOTRANSFERASE 28 U/L (15-37); BILIRUBIN,TOTAL 0.5 mg/dL (0.1-1.0); CALCIUM, TOTAL 8.3 mg/dL (8.8-10.5); CARBON DIOXIDE 25 mmol/L (22-29); CHLORIDE 98 mmol/L (98-107); CREATININE 0.88 mg/dL (0.60-1.30); GLOMERULAR FILTR. RATE CALC > 60 mL/min (>60); GLUCOSE,RANDOM 96 mg/dL (70-110); POTASSIUM 3.3 mmol/L (3.5-5.1); SODIUM SERUM 134 mmol/L (136-145); TOTAL PROTEIN, SERUM 7.1 g/dL (6.4-8.2); UREA NITROGEN, BLOOD 10 mg/dL (7-18)
[2017-11-10] MEDS: RisperiDONE CONC 4 MG/4 ML SOLUTION ORAL.SYG PO SCH ×2 (08:39→17:24)
[2017-11-10] MEDS: AZITHROMYCIN 250 MG TABLET PO SCH (08:39)
[2017-11-10] MEDS: CHOLECALCIFEROL (VIT D3) 1,000 UNITS TABLET PO SCH (08:40)
[2017-11-10 09:54] LABS: BAND NEUTROPHILS % (MANUAL) 2 % (1-5); LYMPHOCYTES % (MANUAL) 38 % (22-44); MONOCYTES % (MANUAL) 12 % (2-9); SEGMENTED NEUTROPHILS % 48 % (40-70)
[2017-11-10] MEDS ORDERED: POTASSIUM CHLORIDE 20 MEQ ER TABLET PO ONE (17:45)
[2017-11-10] MEDS: BENZOCAINE/MENTHOL LOZENGE MM PRN (20:17)
[2017-11-11 01:00] VITALS: BP 118/65
[2017-11-11 05:00] VITALS: BP 104/60
[2017-11-11 08:34] LABS: APPEARANCE,URINE CLEAR (CLEAR); BILIRUBIN,URINE NEGATIVE (NEGATIVE); GLUCOSE, URINE (UA) NEGATIVE (NEGATIVE); KETONES,URINE NEGATIVE (NEGATIVE); LEUKOCYTE ESTERASE ,URINE NEGATIVE (NEGATIVE); NITRATE,URINE NEGATIVE (NEGATIVE); OCCULT BLOOD,URINE NEGATIVE (NEGATIVE); PH,URINE 7.5 (5.0-8.0); PROTEIN,URINE NEGATIVE (NEGATIVE); UROBILINOGEN,URINE 0.2 mg/dL (<=1.0)
[2017-11-11 09:00] VITALS: BP 119/65
[2017-11-11] MEDS: CHOLECALCIFEROL (VIT D3) 1,000 UNITS TABLET PO SCH (09:16)
[2017-11-11] MEDS: AZITHROMYCIN 250 MG TABLET PO SCH (09:16)
[2017-11-11] MEDS: RisperiDONE CONC 4 MG/4 ML SOLUTION ORAL.SYG PO SCH ×2 (09:16→16:20)
[2017-11-11 16:59] VITALS: BP 115/70
[2017-11-11] MEDS: BENZOCAINE/MENTHOL LOZENGE MM PRN (20:54)
[2017-11-11] MEDS: GuaiFENesin/D-METHORPHAN [SUGAR-FREE] 200-20MG/10 ML SYRUP UDCUP PO PRN (21:43)
[2017-11-12] MEDS: GuaiFENesin SR 600 MG ER TABLET PO PRN ×2 (00:41→21:36)
[2017-11-12 01:15] VITALS: BP 116/79
[2017-11-12] MEDS: BENZOCAINE/MENTHOL LOZENGE MM PRN ×2 (03:17→22:47)
[2017-11-12] MEDS: CHOLECALCIFEROL (VIT D3) 1,000 UNITS TABLET PO SCH (09:00)
[2017-11-12] MEDS: AZITHROMYCIN 250 MG TABLET PO SCH (09:38)
[2017-11-12] MEDS: RisperiDONE CONC 4 MG/4 ML SOLUTION ORAL.SYG PO SCH ×2 (09:38→16:55)
[2017-11-12 09:57] VITALS: BP_SYST 111; BP_DIAS 46; BP_DIAS 60
[2017-11-12 16:35] VITALS: BP 109/67
[2017-11-12] MEDS: GuaiFENesin/D-METHORPHAN [SUGAR-FREE] 200-20MG/10 ML SYRUP UDCUP PO PRN (16:55)
[2017-11-13 01:11] VITALS: BP 119/64
[2017-11-13] MEDS: GuaiFENesin/D-METHORPHAN [SUGAR-FREE] 200-20MG/10 ML SYRUP UDCUP PO PRN ×2 (02:11→20:19)
[2017-11-13 08:18] VITALS: BP 102/65
[2017-11-13] MEDS: CHOLECALCIFEROL (VIT D3) 1,000 UNITS TABLET PO SCH (09:00)
[2017-11-13] MEDS: RisperiDONE CONC 4 MG/4 ML SOLUTION ORAL.SYG PO SCH ×2 (09:08→16:05)
[2017-11-13] MEDS: AZITHROMYCIN 250 MG TABLET PO SCH (09:08)
[2017-11-13 16:08] VITALS: BP 119/71
[2017-11-13] MEDS: GuaiFENesin SR 600 MG ER TABLET PO PRN (22:38)
[2017-11-14 01:20] VITALS: BP 119/84
[2017-11-14] MEDS: BENZOCAINE/MENTHOL LOZENGE MM PRN ×2 (01:32→23:38)
[2017-11-14 08:32] VITALS: BP 100/66
[2017-11-14] MEDS: CHOLECALCIFEROL (VIT D3) 1,000 UNITS TABLET PO SCH (08:46)
[2017-11-14] MEDS: RisperiDONE CONC 4 MG/4 ML SOLUTION ORAL.SYG PO SCH ×2 (08:46→16:54)
[2017-11-14] MEDS: GuaiFENesin/D-METHORPHAN [SUGAR-FREE] 200-20MG/10 ML SYRUP UDCUP PO PRN (17:03)
[2017-11-14] MEDS: GuaiFENesin SR 600 MG ER TABLET PO PRN (20:35)
[2017-11-15] MEDS: GuaiFENesin/D-METHORPHAN [SUGAR-FREE] 200-20MG/10 ML SYRUP UDCUP PO PRN ×2 (01:27→16:46)
[2017-11-15 04:29] VITALS: BP 116/71
[2017-11-15] MEDS: CHOLECALCIFEROL (VIT D3) 1,000 UNITS TABLET PO SCH (08:45)
[2017-11-15] MEDS: RisperiDONE CONC 4 MG/4 ML SOLUTION ORAL.SYG PO SCH ×2 (08:46→16:24)
[2017-11-15 16:33] VITALS: BP 121/72
[2017-11-15] MEDS: LORazepam 2 MG TABLET PO PRN (21:07)
[2017-11-15] MEDS: GuaiFENesin SR 600 MG ER TABLET PO PRN (21:08)
[2017-11-15] MEDS: HALOPERIDOL 5 MG TABLET PO PRN (21:31)
[2017-11-16 06:44] VITALS: BP 120/73
[2017-11-16 08:27] VITALS: BP 102/68
[2017-11-16] MEDS: CHOLECALCIFEROL (VIT D3) 1,000 UNITS TABLET PO SCH ×2 (09:00→09:10)
[2017-11-16] MEDS: RisperiDONE CONC 4 MG/4 ML SOLUTION ORAL.SYG PO SCH ×3 (09:10→17:00)
[2017-11-16] MEDS: HALOPERIDOL 5 MG TABLET PO PRN (20:51)
[2017-11-16] MEDS: GuaiFENesin/D-METHORPHAN [SUGAR-FREE] 200-20MG/10 ML SYRUP UDCUP PO PRN (21:41)
[2017-11-17 06:12] VITALS: BP 103/65
[2017-11-17] MEDS: RisperiDONE CONC 4 MG/4 ML SOLUTION ORAL.SYG PO SCH ×2 (10:09→16:42)
[2017-11-17 16:23] VITALS: BP 112/66
[2017-11-18] MEDS: CHOLECALCIFEROL (VIT D3) 1,000 UNITS TABLET PO SCH (09:00)
[2017-11-18] MEDS: RisperiDONE CONC 4 MG/4 ML SOLUTION ORAL.SYG PO SCH ×2 (09:10→16:14)
[2017-11-18 16:00] VITALS: BP 110/61
[2017-11-18] MEDS: GuaiFENesin/D-METHORPHAN [SUGAR-FREE] 200-20MG/10 ML SYRUP UDCUP PO PRN (16:25)
[2017-11-18] MEDS: LORazepam 2 MG TABLET PO PRN (20:30)
[2017-11-18] MEDS: HALOPERIDOL 5 MG TABLET PO PRN (21:55)
[2017-11-19] MEDS: CHOLECALCIFEROL (VIT D3) 1,000 UNITS TABLET PO SCH (09:45)
[2017-11-19] MEDS: RisperiDONE CONC 4 MG/4 ML SOLUTION ORAL.SYG PO SCH (09:45)
[2017-11-19] MEDS ORDERED: RISP4 PO (09:54)
== END 2017-11-19 13:12 | DRG 750 ==
LOC: EEVIPCON 17:14 → EMS 17:14 → B2S 22:49 → B3A 07-04 20:26 → B2S 07-17 12:41
PROVIDERS: ADMIT Psychiatry & Neurology Psychiatry; ATTEND Psychiatry & Neurology Psychiatry
PROC: 3E0234Z Introduction of Serum, Toxoid and Vaccine into Muscle, Percutaneous Approach (ICD-10-PCS; principal; 2017-06-30)
DX: F20.0 Paranoid schizophrenia (principal); E44.1 Mild protein-calorie malnutrition; F94.0 Selective mutism; K59.00 Constipation, unspecified; G47.00 Insomnia, unspecified; F29 Unspecified psychosis not due to a substance or known physiological condition; E55.9 Vitamin D deficiency, unspecified; E87.1 Hypo-osmolality and hyponatremia; Z79.899 Other long term (current) drug therapy; Z23 Encounter for immunization; Z68.31 Body mass index [BMI] 31.0-31.9, adult; Z91.14 Patient's other noncompliance with medication regimen
CPT/HCPCS: 71046; 80074; 82306; 83735; 84100; 84132; 84295; 84443; 85007; 87081; 99285; G0480; J1630; J2060

== ENCOUNTER 2022-11-10 11:35 | Emergency (ER) | payer MEDICAID ==
[~2022-11-10] VITALS: Ht 170.2 cm; Wt 81.8 kg
[~2022-11-10 11:35] MED LIST changes: -RISP3 PO; +RISP4TAB73 PO
[2022-11-10] MEDS ORDERED: ONDANSETRON HCL 4 MG TABLET PO ONE (13:00)
[2022-11-10] MEDS ORDERED: DIPHENOXYLATE/ATROP 2.5-0.025 MG TABLET PO ONE (13:00)
[2022-11-10] MEDS: ACETAMINOPHEN 500 MG TABLET PO ONE ×2 (13:00→13:07)
[2022-11-10 13:30] LABS: BASOPHILS % (AUTO) 0.4 % (0.0-2.0); EOSINOPHILS % (AUTO) 1.2 % (1.0-6.0); HEMATOCRIT 49.3 % (36-46); HEMOGLOBIN 15.8 g/dL (12.0-16.0); LYMPHOCYTES # (AUTO) 1.6 K/uL (1.0-4.8); LYMPHOCYTES % (AUTO) 37.8 % (22.0-44.0); MEAN CORPUSCULAR HEMOGLOBIN 25.3 pg (26.0-34.0); MEAN CORPUSCULAR HGB CONC 32.1 G/dL (31.0-37.0); MEAN CORPUSCULAR VOLUME 79 fL (80-100); MONOCYTES # (AUTO) 0.4 K/uL (0.1-1.0); MONOCYTES % (AUTO) 8.9 % (2.0-9.0); NEUTROPHILS # (AUTO) 2.2 K/uL (1.8-7.7); NEUTROPHILS % (AUTO) 51.7 % (40.0-70.0); PLATELET COUNT (AUTO) 305 K/uL (150-450); RED BLOOD CELL COUNT(AUTO) 6.26 MIL/uL (4.00-5.20); RED CELL DISTRIBUTION WIDTH 14.6 % (11.5-14.5)
[2022-11-10 13:40] LABS: ANION GAP 9 mmol/L (8-16); CARBON DIOXIDE 27 mmol/L (22-29); CHLORIDE 99 mmol/L (98-107); CREATININE 0.83 mg/dL (0.60-1.30); GLOMERULAR FILTR. RATE CALC > 60 mL/min (>60); GLUCOSE,RANDOM 104 mg/dL (70-110); POTASSIUM 3.3 mmol/L (3.5-5.1); SODIUM SERUM 135 mmol/L (136-145); UREA NITROGEN, BLOOD 10 mg/dL (7-18)
[2022-11-10 13:46] LABS: ALANINE AMINOTRANSFERASE 42 U/L (12-78); ALKALINE PHOSPHATASE 79 U/L (46-116); ASPARTATE AMINOTRANSFERASE 32 U/L (15-37); BILIRUBIN,TOTAL 0.9 mg/dL (0.1-1.0); LIPASE 79 U/L (73-393); TOTAL PROTEIN, SERUM 8.9 g/dL (6.4-8.2)
[2022-11-10 14:43] VITALS: BP 133/68
== END 2022-11-10 14:50 | disposition home or self-care (01) ==
LOC: EMS 11:35
DX: R19.7 Diarrhea, unspecified (principal); F20.9 Schizophrenia, unspecified
CPT/HCPCS: 99283; 80053; 83690; 84703; 85025; 36415; Q0162